=== PATIENT | male | born 1975 | race African-American/Black ===

== ENCOUNTER 2024-01-06 10:23 | Outpatient (CLI) | payer OTHER, SELFPAY ==
--- NOTE | 2024-01-06 11:30 | NEURO_ITS ---
Impression: # Complains of numbness of left foot. History of left ankle surgery couple of years ago. 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 # Normal needle/EMG exam. # Clinical correlation recommended. Nerve Conduction Studies Anti Sensory Summary Table Stim Site NR Peak (ms) P-T Amp (?V) Site1 Site2 Delta-P (ms) Dist (cm) Bill (m/s) Left Saphenous Anti Sensory (Ant Med Mall) 14cm 3.8 10.0 14cm Ant Med Mall 3.8 0.0 Left Sup Fibular Anti Sensory (Ant Lat Mall) 14 cm 3.9 9.3 14 cm Ant Lat Mall 3.9 16.0 41 Left Sural Anti Sensory (Lat Mall) Calf 3.7 4.1 Calf Lat Mall 3.7 16.0 43 Motor Summary Table Stim Site NR Onset (ms) O-P Amp (mV) Site1 Site2 Delta-0 (ms) Dist (cm) Bill (m/s) Left Peroneal Motor (Vastus Med) Ankle 4.2 0.7 Popit Ankle 10.6 46.0 43 Popit 14.8 3.1 Left Tibial Motor (Abd Braxton Brev) Ankle 4.7 2.9 Knee Ankle 11.6 46.0 40 Knee 16.3 1.7 F Wave Studies NR F-Lat (ms) L-R F-Lat (ms) Left Peroneal (Mrkrs) (EDB) 61.82 Left Tibial (Mrkrs) (Abd Hallucis) 62.43 EMG Side Muscle Nerve Root Ins Act Fibs Amp Dur Recrt Comment Left AntTibialis Dp Br Fibular L4-5 Nml Nml Nml Nml Nml Left Gastroc Tibial S1-2 Nml Nml Nml Nml Nml Left Fibularis Long Sup Br Fibular L5-S1 Nml Nml Nml Nml Nml Left Flex Dig Long Tibial L5-S2 Nml Nml Nml Nml Nml Left Ext Dig Brev Dp Br Fibular L5, S1 Nml Nml Nml Nml Nml MTDD
== END 2024-01-06 10:24 | disposition home or self-care (01) ==
DX: S94.92XA Injury of unspecified nerve at ankle and foot level, left leg, initial encounter (principal); G62.9 Polyneuropathy, unspecified
CPT/HCPCS: 95886; 95909